=== PATIENT | female | born 1975 | race Caucasian/White ===

== ENCOUNTER 2018-03-30 10:31 | Emergency (ER) | payer OTHER ==
[~2018-03-30] VITALS: Ht 157.5 cm; Wt 68.0 kg
[~2018-03-30 10:31] MED LIST: ACET325; ALBU90OI61 INH; CRUTCH4 USE; Crutch1 EACH MISC; DOC250 PO; DULOXETINE HCL60 MG PO; FOLI1 PO; Gabapentin600 MG PO; HYDACE10B PO; HYDACE5 PO; HYDPAM25 PO; Hydrocodone-Ap1 EA20 PO; LAMOTRIGINE200 MG PO; LORA2 PO; MULVIT; Naprosyn500 MG PO; Naproxen500 MG PO; Norco 5-325 Ta1 EACH PO; OXYACE5T PO; PARO10 PO; PRAHYD1AE TOP; UNKNOWN ANTIBIOTIC
[2018-03-30] MEDS ORDERED: Doxycycline Hy100 MG PO (11:02)
== END 2018-03-30 12:00 | disposition home or self-care (01) ==
LOC: ER 10:31
DX: S61.452A Open bite of left hand, initial encounter (principal); W54.0XXA Bitten by dog, initial encounter; Z88.2 Allergy status to sulfonamides; Z88.8 Allergy status to other drugs, medicaments and biological substances; Z88.0 Allergy status to penicillin; Z91.048 Other nonmedicinal substance allergy status; Z91.040 Latex allergy status; Z88.5 Allergy status to narcotic agent; Z79.899 Other long term (current) drug therapy; Z79.891 Long term (current) use of opiate analgesic; Z79.2 Long term (current) use of antibiotics; F32.9 Major depressive disorder, single episode, unspecified; F31.9 Bipolar disorder, unspecified; F20.9 Schizophrenia, unspecified; F17.200 Nicotine dependence, unspecified, uncomplicated
CPT/HCPCS: 90376; 90471; 96372; 99283

== ENCOUNTER 2019-04-05 08:55 | Day surgery (SDC) | payer OTHER ==
[~2019-04-05] VITALS: Ht 157.5 cm; Wt 63.6 kg
[~2019-04-05 08:55] MED LIST changes: +Doxycycline Hy100 MG PO
[2019-04-05] MEDS ORDERED: FOLI400 (09:56)
== END 2019-04-05 11:05 | disposition home or self-care (01) ==
LOC: ORSCSDS 08:55
PROVIDERS: Internal Medicine Gastroenterology
PROC: 0DBM8ZX Excision of Descending Colon, Via Natural or Artificial Opening Endoscopic, Diagnostic (ICD-10-PCS; principal; 2019-04-05 10:15)
DX: K62.5 Hemorrhage of anus and rectum (principal); K63.5 Polyp of colon; K57.30 Diverticulosis of large intestine without perforation or abscess without bleeding; K64.4 Residual hemorrhoidal skin tags; K64.8 Other hemorrhoids; Z86.010 Personal history of colon polyps; K59.09 Other constipation; R10.9 Unspecified abdominal pain; J45.909 Unspecified asthma, uncomplicated; F17.210 Nicotine dependence, cigarettes, uncomplicated; Z79.899 Other long term (current) drug therapy
CPT/HCPCS: 88305; J2704; J7120

== ENCOUNTER 2023-12-24 11:36 | Emergency (ER) | payer OTHER ==
[~2023-12-24] VITALS: Ht 167.6 cm; Wt 68.0 kg
[~2023-12-24 11:36] MED LIST changes: +FOLI400
[2023-12-24 12:04] LABS: Hematocrit 41.9 % (33.0-51.0); Hemoglobin 13.8 g/dL (11.5-16.0); Mean Corpuscular HGB 30.3 pg (26.0-34.0); Mean Corpuscular HGB Conc 32.9 g/dL (31.5-36.5); Mean Corpuscular Volume 92 fL (80-100); Mean Platelet Volume 10.4 fL (9.1-12.4); Platelet Count 257 K/mm3 (150-400); RDW Coefficient Variation 13.7 % (11.7-14.2); Red Blood Cell Count 4.55 M/mm3 (3.80-5.20); White Blood Cell Count 7.53 K/mm3 (4.00-11.30)
[2023-12-24 12:23] LABS: Albumin, Blood 3.8 g/dL (3.4-5.0); Bilirubin, Total 0.4 mg/dL (0.1-1.0); Bun/Creatinine Ratio 12.1 (12.0-20.0); Calcium, Blood 9.3 mg/dL (8.5-10.1); Creatinine, Blood 0.75 mg/dL (0.40-1.00); Globulin, Blood 3.7 g/dL (2.2-4.0); Potassium, Blood 3.7 mmol/L (3.5-5.5); Total Protein, Blood 7.5 g/dL (6.4-8.2)
[2023-12-24 12:24] LABS: BASOPHILS PERCENT MAN 0 % (0-2); EOSINOPHILS PERCENT MAN 0 % (0-6); LYMPHOCYTES PERCENT MAN 8 % (21-46); MONOCYTES ABSOLUTE MAN 0.22 K/mm3 (0.16-1.47); MONOCYTES PERCENT MAN 3 % (4-13); MYELOCYTE ABSOLUTE MAN 0.07 K/mm3 (0.00-0.00); MYELOCYTE PERCENT MAN 1 % (0-0); NEUTROPHILS ABSOLUTE MAN 6.62 K/mm3 (1.96-9.15); SEG NEUTROPHILS PERCENT MAN 88 % (41-73); TOTAL CELLS COUNTED 100
[2023-12-24 12:42] LABS: Influenza B, PCR NEGATIVE (NEGATIVE); Resp Syncytial Virus, PCR NEGATIVE (NEGATIVE); SARS-Cov-2 (COVID-19) PCR, MMC NEGATIVE (NEGATIVE)
[2023-12-24 12:43] LABS: Influenza A, PCR POSITIVE (NEGATIVE)
[2023-12-24 15:00] VITALS: BP 138/83
== END 2023-12-24 15:32 | disposition home or self-care (01) ==
LOC: ER 11:36
PROVIDERS: Physician Assistant
DX: F41.9 Anxiety disorder, unspecified (principal); J10.1 Influenza due to other identified influenza virus with other respiratory manifestations; Z88.2 Allergy status to sulfonamides; Z88.1 Allergy status to other antibiotic agents; Z88.0 Allergy status to penicillin; Z91.048 Other nonmedicinal substance allergy status; Z91.040 Latex allergy status; Z88.5 Allergy status to narcotic agent; Z79.899 Other long term (current) drug therapy; F17.200 Nicotine dependence, unspecified, uncomplicated
CPT/HCPCS: 0241U; 71046; 80053; 84484; 85025; 93005; 93010; 99284-25

== ENCOUNTER 2024-05-25 12:20 | Emergency (ER) | payer OTHER ==
[~2024-05-25] VITALS: Ht 157.5 cm; Wt 69.8 kg
[2024-05-25] MEDS ORDERED: Dexamethasone Sod Phos 10 MG/ML 1ML VIAL IV ONE (14:20)
[2024-05-25] MEDS ORDERED: Ketorolac Tromethamine 30mg Vial IV ONE (14:20)
[2024-05-25 14:59] LABS: BASOPHILS ABSOLUTE AUTO 0.04 K/mm3 (0.00-0.23); BASOPHILS PERCENT AUTO 1 % (0-2); EOSINOPHILS ABSOLUTE AUTO 0.17 K/mm3 (0.00-0.68); EOSINOPHILS PERCENT AUTO 2 % (0-6); Hematocrit 39.1 % (33.0-51.0); Hemoglobin 12.7 g/dL (11.5-16.0); IMMATURE GRAN ABSOLUTE AUTO 0.03 K/mm3 (0.00-0.10); IMMATURE GRAN PERCENT AUTO 0 % (0-1); LYMPHOCYTES ABSOLUTE AUTO 1.95 K/mm3 (0.84-5.20); LYMPHOCYTES PERCENT AUTO 25 % (21-46); MONOCYTES ABSOLUTE AUTO 0.56 K/mm3 (0.16-1.47); MONOCYTES PERCENT AUTO 7 % (4-13); Mean Corpuscular HGB 30.1 pg (26.0-34.0); Mean Corpuscular HGB Conc 32.5 g/dL (31.5-36.5); Mean Corpuscular Volume 93 fL (80-100); Mean Platelet Volume 9.3 fL (9.1-12.4); NEUTROPHILS ABSOLUTE AUTO 5.11 K/mm3 (1.96-9.15); NEUTROPHILS PERCENT AUTO 65 % (41-73); NRBC ABSOLUTE 0.02 K/mm3 (0.00-0.02); NRBC Auto 0.3 /100 WBC (0.0-0.2); Platelet Count 255 K/mm3 (150-400); RDW Standard Deviation 47.7 fL (35.1-46.3); Red Blood Cell Count 4.22 M/mm3 (3.80-5.20); White Blood Cell Count 7.86 K/mm3 (4.00-11.30)
[2024-05-25 15:15] LABS: Albumin, Blood 3.9 g/dL (3.4-5.0); Albumin/Globulin Ratio 1.2 (0.8-1.8); Bilirubin, Total 0.6 mg/dL (0.1-1.0); Bun/Creatinine Ratio 25.6 (12.0-20.0); Calcium, Blood 9.2 mg/dL (8.5-10.1); Creatinine, Blood 0.74 mg/dL (0.40-1.00); Globulin, Blood 3.2 g/dL (2.2-4.0); Potassium, Blood 4.4 mmol/L (3.5-5.5); Total Protein, Blood 7.1 g/dL (6.4-8.2)
[2024-05-25 15:30] VITALS: BP 103/69
[2024-05-25] MEDS ORDERED: METPRE4DP PO (15:34)
[2024-05-25] MEDS ORDERED: CEPH500 PO (15:34)
[2024-05-25] MEDS ORDERED: IBUP600 PO (15:34)
== END 2024-05-25 15:54 | disposition home or self-care (01) ==
LOC: ER 12:20
PROVIDERS: Emergency Medicine
DX: L25.9 Unspecified contact dermatitis, unspecified cause (principal); F17.200 Nicotine dependence, unspecified, uncomplicated; Z79.899 Other long term (current) drug therapy; Z88.0 Allergy status to penicillin; Z88.6 Allergy status to analgesic agent; Z88.1 Allergy status to other antibiotic agents; Z91.040 Latex allergy status; Z88.5 Allergy status to narcotic agent
CPT/HCPCS: 80053; 85025; 96374; 96375; 99283-25; J1100; J1885

== ENCOUNTER → 2024-06-06 | Outpatient (CLI) | payer OTHER ==
[~2024-06-06] MED LIST changes: +CEPH500 PO; +IBUP600 PO; +METPRE4DP PO
== END ==
LOC: LAB SHORT 13:58 → LAB 13:58
DX: R21 Rash and other nonspecific skin eruption (principal)
CPT/HCPCS: 87210

== ENCOUNTER → 2024-06-16 | Outpatient (CLI) | payer OTHER | LOC: LAB SHORT 16:20 → LAB 16:20 | DX: S81.802A Unspecified open wound, left lower leg, initial encounter (principal) | CPT/HCPCS: 87070; 87205 ==

== ENCOUNTER 2024-07-17 07:16 | Day surgery (SDC) | payer OTHER ==
[~2024-07-17] VITALS: Ht 157.5 cm; Wt 65.7 kg
[~2024-07-17 07:16] MED LIST changes: +Lactated Ringer's 1,000 ML IV ONE; +Lidocaine 1%-Epineph 1:100000 20 ML MDV ONE
[2024-07-17] MEDS ORDERED: TIZA4 (07:42)
[2024-07-17] MEDS ORDERED: LISI20 PO (07:44)
[2024-07-17] MEDS ORDERED: CATAPRES0.2 M1 PO (07:44)
[2024-07-17] MEDS ORDERED: PRAM.125 PO (07:44)
[2024-07-17] MEDS ORDERED: COMBIVENT RESPIM4 G1 INH (07:45)
[2024-07-17] MEDS ORDERED: Serevent Disku50 MCG IH (07:45)
[2024-07-17] MEDS ORDERED: Lactated Ringer's 1,000 ML IV ONE (07:49)
--- NOTE | 2024-07-17 07:50 | NUR ---
07/17/24 0750 Olivia Byrd TIME OUT COMPLETED AT BEDSIDE WITH DR GAMBINO PRIOR TO DR GAMBINO INJECTING TOTAL OF 15ML MIXTURE OF 1% LIDOCAINE WITH EPI [id number] AND 8.4% SODIUM BICARBONATE.
[2024-07-17] MEDS ORDERED: propofoL 20 ML IV ONE (08:20)
[2024-07-17] MEDS ORDERED: Midazolam HCl 1MG / ML 2ML Vial ONE (08:20)
[2024-07-17] MEDS ORDERED: FentaNYL Citrate 50 MCG/ML 2 ML Injection ONE (08:20)
[2024-07-17 09:02] VITALS: BP 94/66
--- NOTE | 2024-07-17 09:21 | NUR ---
07/17/24 0921 La Rocha PT STEADY ON FEET. NO COMPLAITS OF PAIN. NO QUESTIONS OR CONCERS
== END 2024-07-17 09:19 | disposition home or self-care (01) ==
LOC: ORSCSDS 07:16
PROVIDERS: Orthopaedic Surgery
PROC: 0LN80ZZ Release Left Hand Tendon, Open Approach (ICD-10-PCS; principal; 2024-07-17 08:30)
PROC: 01N54ZZ Release Median Nerve, Percutaneous Endoscopic Approach (ICD-10-PCS; 2024-07-17 08:30)
DX: G56.03 Carpal tunnel syndrome, bilateral upper limbs (principal); M65.342 Trigger finger, left ring finger; M65.332 Trigger finger, left middle finger; I10 Essential (primary) hypertension; K21.9 Gastro-esophageal reflux disease without esophagitis; R56.9 Unspecified convulsions; Z87.891 Personal history of nicotine dependence; Z79.899 Other long term (current) drug therapy
CPT/HCPCS: J2250; J2704; J3010; J7120

== ENCOUNTER 2025-01-07 12:12 | Emergency (ER) | payer OTHER ==
[~2025-01-07] VITALS: Ht 157.5 cm; Wt 59.0 kg
[~2025-01-07 12:12] MED LIST changes: +CATAPRES0.2 M1 PO; +COMBIVENT RESPIM4 G1 INH; +LISI20 PO; -Lactated Ringer's 1,000 ML IV ONE; -Lidocaine 1%-Epineph 1:100000 20 ML MDV ONE; +PRAM.125 PO; +Serevent Disku50 MCG IH; +TIZA4
[2025-01-07 12:40] VITALS: BP 97/68
[2025-01-07] MEDS ORDERED: Diphth,Pertuss(Acell),Tet Vac 0.5 ML VIAL IM ONE (12:45)
== END 2025-01-07 14:51 | disposition home or self-care (01) ==
LOC: ER 12:12
DX: S61.216A Laceration without foreign body of right little finger without damage to nail, initial encounter (principal); W25.XXXA Contact with sharp glass, initial encounter; Z23 Encounter for immunization; Z79.899 Other long term (current) drug therapy; Z79.891 Long term (current) use of opiate analgesic; F17.200 Nicotine dependence, unspecified, uncomplicated; Z88.2 Allergy status to sulfonamides; Z88.0 Allergy status to penicillin; Z88.6 Allergy status to analgesic agent; Z91.09 Other allergy status, other than to drugs and biological substances; Z88.5 Allergy status to narcotic agent; Z91.040 Latex allergy status
CPT/HCPCS: 12001; 90471; 90715; 99282-25

== ENCOUNTER 2025-07-09 17:06 | Observation (INO) | payer OTHER ==
[~2025-07-09] VITALS: Ht 162.6 cm; Wt 65.8 kg
[~2025-07-09 17:06] MED LIST changes: -TIZA4; +TIZA4 PO
[2025-07-09 17:59] LABS: Source, Urine Clean Catch
[2025-07-09 18:43] LABS: BASOPHILS ABSOLUTE AUTO 0.03 K/mm3 (0.00-0.23); BASOPHILS PERCENT AUTO 0 % (0-2); EOSINOPHILS ABSOLUTE AUTO 0.12 K/mm3 (0.00-0.68); EOSINOPHILS PERCENT AUTO 2 % (0-6); Hematocrit 42.1 % (33.0-51.0); Hemoglobin 13.8 g/dL (11.5-16.0); IMMATURE GRAN ABSOLUTE AUTO 0.02 K/mm3 (0.00-0.10); IMMATURE GRAN PERCENT AUTO 0 % (0-1); LYMPHOCYTES ABSOLUTE AUTO 2.35 K/mm3 (0.84-5.20); LYMPHOCYTES PERCENT AUTO 29 % (21-46); MONOCYTES ABSOLUTE AUTO 0.71 K/mm3 (0.16-1.47); MONOCYTES PERCENT AUTO 9 % (4-13); Mean Corpuscular HGB Conc 32.8 g/dL (31.5-36.5); Mean Corpuscular Volume 92 fL (80-100); NEUTROPHILS ABSOLUTE AUTO 4.89 K/mm3 (1.96-9.15); NEUTROPHILS PERCENT AUTO 60 % (41-73); NRBC ABSOLUTE 0.00 K/mm3 (0.00-0.02); NRBC Auto 0.0 /100 WBC (0.0-0.2); Platelet Count 326 K/mm3 (150-400); RDW Coefficient Variation 13.2 % (11.7-14.2); RDW Standard Deviation 45.3 fL (35.1-46.3)
[2025-07-09 19:00] LABS: Color, Urine Yellow (P-Yellow); Glucose Qualitative, Urine Neg (Neg); Ketones, Urine Neg (Neg); Leukocyte Esterase, Urine 1+ (Neg); Protein, Urine 2+ (Neg); Specific Gravity, Urine 1.025 (1.003-1.022); Urobilinogen, Urine 1+ (Normal)
[2025-07-09 19:45] LABS: U Amphetamine Screen DETECTED; U Barbituate Screen Not Detected; U Benzodiazapine Screen Not Detected; U Buprenorphine Screen Not Detected; U Cannabinoids Screen DETECTED; U Cocaine Screen Not Detected; U Methadone Screen Not Detected; U Methamphetamine Screen DETECTED; U Opiates Screen Not Detected; U Oxycodone Screen Not Detected; U Phencyclidine Screen Not Detected
[2025-07-09 19:50] LABS: Bilirubin, Urine 1+ (Neg)
[2025-07-09 19:54] LABS: Ethanol (Alcohol), Blood, Med <3 mg/dL; Salicylate 3.8 mg/dL (2.8-20.0)
[2025-07-09 19:56] LABS: Acetaminophen, Random <2.0 ug/mL (10.0-30.0); Alanine Aminotransfer (ALT/SGP 22 U/L (12-78); Albumin, Blood 3.8 g/dL (3.4-5.0); Albumin/Globulin Ratio 1.2 (0.8-1.8); Anion Gap 6 mmol/L (3-11); Aspartate Aminotrans (AST/SGOT 19 U/L (12-37); Bilirubin, Total 0.3 mg/dL (0.1-1.0); Blood Urea Nitrogen 31 mg/dL (8-24); CO2, Blood 25 mmol/L (21-32); Calcium, Blood 9.1 mg/dL (8.5-10.1); Chloride, Blood 110 mmol/L (98-108); Creatinine, Blood 0.79 mg/dL (0.40-1.00); Globulin, Blood 3.2 g/dL (2.2-4.0); Glucose, Blood 102 mg/dL (70-99); Potassium, Blood 3.7 mmol/L (3.5-5.5); Sodium, Blood 137 mmol/L (136-145); Total Protein, Blood 7.0 g/dL (6.4-8.2)
[2025-07-09] MEDS ORDERED: Naproxen 250 MG TAB PO ONE (21:10)
[2025-07-09] MEDS ORDERED: Ondansetron 4 MG SoluTab MM ONE (22:10)
[2025-07-09 23:43] LABS: BASOPHILS ABSOLUTE AUTO 0.04 K/mm3 (0.00-0.23); BASOPHILS PERCENT AUTO 0 % (0-2); EOSINOPHILS ABSOLUTE AUTO 0.19 K/mm3 (0.00-0.68); EOSINOPHILS PERCENT AUTO 2 % (0-6); Hematocrit 42.9 % (33.0-51.0); Hemoglobin 13.3 g/dL (11.5-16.0); IMMATURE GRAN ABSOLUTE AUTO 0.02 K/mm3 (0.00-0.10); IMMATURE GRAN PERCENT AUTO 0 % (0-1); LYMPHOCYTES ABSOLUTE AUTO 5.06 K/mm3 (0.84-5.20); LYMPHOCYTES PERCENT AUTO 43 % (21-46); MONOCYTES ABSOLUTE AUTO 1.24 K/mm3 (0.16-1.47); MONOCYTES PERCENT AUTO 11 % (4-13); Mean Corpuscular HGB Conc 31.0 g/dL (31.5-36.5); Mean Corpuscular Volume 96 fL (80-100); NEUTROPHILS ABSOLUTE AUTO 5.16 K/mm3 (1.96-9.15); NEUTROPHILS PERCENT AUTO 44 % (41-73); NRBC ABSOLUTE 0.00 K/mm3 (0.00-0.02); NRBC Auto 0.0 /100 WBC (0.0-0.2); Platelet Count 300 K/mm3 (150-400); RDW Coefficient Variation 13.2 % (11.7-14.2); RDW Standard Deviation 47.4 fL (35.1-46.3)
[2025-07-10 00:01] LABS: Magnesium, Blood 2.1 mg/dL (1.6-2.4); Prothrombin Time Results 11.1 Sec (9.7-11.5); Salicylate 4.0 mg/dL (2.8-20.0)
[2025-07-10 00:04] LABS: Acetaminophen, Random <2.0 ug/mL (10.0-30.0); Alanine Aminotransfer (ALT/SGP 18 U/L (12-78); Albumin, Blood 3.5 g/dL (3.4-5.0); Albumin/Globulin Ratio 1.1 (0.8-1.8); Anion Gap 18 mmol/L (3-11); Aspartate Aminotrans (AST/SGOT 19 U/L (12-37); Bilirubin, Total 0.2 mg/dL (0.1-1.0); Blood Urea Nitrogen 31 mg/dL (8-24); CO2, Blood 19 mmol/L (21-32); Calcium, Blood 8.5 mg/dL (8.5-10.1); Chloride, Blood 107 mmol/L (98-108); Creatinine, Blood 0.75 mg/dL (0.40-1.00); Globulin, Blood 3.3 g/dL (2.2-4.0); Glucose, Blood 122 mg/dL (70-99); Potassium, Blood 3.3 mmol/L (3.5-5.5); Sodium, Blood 141 mmol/L (136-145); Total Protein, Blood 6.8 g/dL (6.4-8.2)
[2025-07-10 00:34] LABS: pH Blood Venous 7.32 (7.34-7.37)
[2025-07-10 02:48] LABS: Anion Gap 8.0 mmol/L (3-11); Blood Urea Nitrogen 27.0 mg/dL (8-24); CO2, Blood 25.0 mmol/L (21-32); Calcium, Blood 8.5 mg/dL (8.5-10.1); Chloride, Blood 109.0 mmol/L (98-108); Creatinine, Blood 0.65 mg/dL (0.40-1.00); Glucose, Blood 106.0 mg/dL (70-99); Potassium, Blood 3.8 mmol/L (3.5-5.5); Salicylate 3.3 mg/dL (2.8-20.0); Sodium, Blood 138.0 mmol/L (136-145)
[2025-07-10] MEDS ORDERED: Ondansetron HCl 2 MG / ML 2ML Vial IV ONE (03:00)
[2025-07-10] MEDS ORDERED: Ondansetron 4 MG SoluTab MM PRN (03:10)
[2025-07-10 05:01] LABS: Anion Gap 7.0 mmol/L (3-11); Blood Urea Nitrogen 27.0 mg/dL (8-24); CO2, Blood 26.0 mmol/L (21-32); Calcium, Blood 8.4 mg/dL (8.5-10.1); Chloride, Blood 111.0 mmol/L (98-108); Creatinine, Blood 0.66 mg/dL (0.40-1.00); Glucose, Blood 119.0 mg/dL (70-99); Potassium, Blood 3.8 mmol/L (3.5-5.5); Sodium, Blood 140.0 mmol/L (136-145)
[2025-07-10] MEDS ORDERED: LORazepam 2 MG/ML 1ML Injection IV ONE (06:35)
[2025-07-10] MEDS ORDERED: Diazepam 5 MG / ML 2ML SYR IV PRN (06:40)
[2025-07-10] MEDS ORDERED: HydrALAZINE HCl 20 MG / ML 1ML Vial IV PRN (06:55)
[2025-07-10 08:12] VITALS: BP 103/57
[2025-07-10] MEDS ORDERED: Enoxaparin 40 MG/0.4 ML SYR SC SCH (09:00)
[2025-07-10 11:40] VITALS: BP 116/62
[2025-07-10] MEDS ORDERED: GABA300 PO (11:50)
[2025-07-10] MEDS ORDERED: PARO30 PO (11:52)
[2025-07-10] MEDS ORDERED: ZOCOR20 MG PO (11:56)
[2025-07-10 16:38] VITALS: BP 116/67
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
--- NOTE | 2025-07-10 20:02 | NUR ---
UPDATE: THIS RN WAS MADE AWARE THAT PT WAS NOW AWAKE AND STATING SHE WOULD LIKE TO LEAVE. THIS RN NOTIFIED DR DAVID OF PT'S DESIRE TO LEAVE, PROVIDER SAID HE WOULD SEE HER IN THE AM AND TO NOTIFY THE NIGHT MD. DR. BRADFORD NOTIFIED OF PT'S DESIRE TO LEAVE. PROVIDER TO BEDSIDE TO TALK WITH PT. AFTER DISCUSSION PT IS AGREEABLE TO STAYING THE NIGHT.
[2025-07-10 20:40] VITALS: BP 108/65
[2025-07-10 23:07] VITALS: BP 99/71
[2025-07-11 03:16] VITALS: BP 141/81
[2025-07-11] MEDS ORDERED: Albuterol 2.5 MG/3 ML VIAL INH PRN (04:05)
--- NOTE | 2025-07-11 05:26 | NUR ---
SHIFT SUMMARY PT ALERT AND ORIENTED X 4. STILL LETHARGIC AT TIMES BUT ABLE TO ASSIST TO BATHROOM X 1. PT NSR IN 80S ON MONITOR. DENIES CP/PRESSURE. PT MAINTAINS O2 SATS ABOVE 90% ON RA. PT DID NOT HAVE ANY SEIZURES THIS SHIFT. PRECAUTIONS IN PLACE. 1:[address] FOR SI[address] PSYCH TO REEVAL PATIENT TODAY. PT RESTED WELL THE MAJORITY OF SHIFT.
[2025-07-11 08:17] VITALS: BP 116/101
[2025-07-11 12:22] VITALS: BP 133/86
[2025-07-11] MEDS ORDERED: KEPPRA250 M1 PO (12:36)
--- NOTE | 2025-07-11 14:30 | NUR ---
Discharge note. Pt has been awake and active since shift change this morning. Pt has been very vocal about wanting to discharge. Psych rounded and decided that she will be admitted to [facility]. Pt has also vocalized her frustration about being admitted to [facility] rather than going home. Pt is very concerned about her housing situation while she is in the hospital. Report was given to [facility]. All belongings were taken with Pt.
[2025-07-16] MEDS ORDERED: MIRT30 PO (10:38)
== END 2025-07-11 14:18 | disposition home or self-care (01) ==
LOC: ER 17:06 → PCU 17:07 → EOR 17:07 → EDBEDREQ 22:11 → PCU 07-10 07:53
PROVIDERS: Student in an Organized Health Care Education/Training Program; ADMIT Student in an Organized Health Care Education/Training Program
DX: T42.6X2A Poisoning by other antiepileptic and sedative-hypnotic drugs, intentional self-harm, initial encounter (principal); R41.0 Disorientation, unspecified; H53.2 Diplopia; E87.20 Acidosis, unspecified; E87.6 Hypokalemia; R56.9 Unspecified convulsions; S00.03XA Contusion of scalp, initial encounter; W18.30XA Fall on same level, unspecified, initial encounter; F25.0 Schizoaffective disorder, bipolar type; J45.909 Unspecified asthma, uncomplicated; F17.200 Nicotine dependence, unspecified, uncomplicated; Z66 Do not resuscitate; Z88.0 Allergy status to penicillin; Z88.1 Allergy status to other antibiotic agents; Z88.8 Allergy status to other drugs, medicaments and biological substances; Z91.040 Latex allergy status; Z91.048 Other nonmedicinal substance allergy status; Z79.899 Other long term (current) drug therapy
CPT/HCPCS: 70450; 72125; 80048; 80053; 80320; 81001; 81025; 82550; 82803; 83605; 83735; 84145; 84146; 85025; 85610; 85730; 87086; 90471; 90715; 93005; 93010; 96365; 96375; 99285-25; A9270; G0378; G0480; J1953; J2405; J7120

== ENCOUNTER 2025-09-24 05:17 | Emergency (ER) | payer OTHER ==
[~2025-09-24] VITALS: Ht 160 cm; Wt 59.0 kg
[~2025-09-24 05:17] MED LIST changes: +GABA300 PO; +KEPPRA250 M1 PO; +MIRT30 PO; +PARO30 PO; +ZOCOR20 MG PO
[2025-09-24] MEDS ORDERED: QUETIAPINE FUMA25 MG PO (05:29)
[2025-09-24] MEDS ORDERED: NAPROXEN500 MG PO (05:29)
[2025-09-24] MEDS ORDERED: PARO30 PO (05:29)
[2025-09-24] MEDS ORDERED: PRAMIPEXOLE D0.25 M1 PO (05:29)
[2025-09-24] MEDS ORDERED: DULOXETINE HCL60 M1 PO (05:29)
[2025-09-24 05:48] LABS: BASOPHILS ABSOLUTE AUTO 0.04 K/mm3 (0.00-0.23); BASOPHILS PERCENT AUTO 1 % (0-2); EOSINOPHILS ABSOLUTE AUTO 0.11 K/mm3 (0.00-0.68); EOSINOPHILS PERCENT AUTO 1 % (0-6); Hematocrit 40.4 % (33.0-51.0); Hemoglobin 13.1 g/dL (11.5-16.0); IMMATURE GRAN ABSOLUTE AUTO 0.03 K/mm3 (0.00-0.10); IMMATURE GRAN PERCENT AUTO 0 % (0-1); LYMPHOCYTES ABSOLUTE AUTO 1.62 K/mm3 (0.84-5.20); LYMPHOCYTES PERCENT AUTO 20 % (21-46); MONOCYTES ABSOLUTE AUTO 0.57 K/mm3 (0.16-1.47); MONOCYTES PERCENT AUTO 7 % (4-13); Mean Corpuscular HGB Conc 32.4 g/dL (31.5-36.5); Mean Corpuscular Volume 94 fL (80-100); NEUTROPHILS ABSOLUTE AUTO 5.68 K/mm3 (1.96-9.15); NEUTROPHILS PERCENT AUTO 71 % (41-73); NRBC ABSOLUTE 0.00 K/mm3 (0.00-0.02); NRBC Auto 0.0 /100 WBC (0.0-0.2); Platelet Count 302 K/mm3 (150-400); RDW Coefficient Variation 14.2 % (11.7-14.2); RDW Standard Deviation 49.4 fL (35.1-46.3)
[2025-09-24 06:14] LABS: Alanine Aminotransfer (ALT/SGP 19.0 U/L (12-78); Albumin, Blood 3.6 g/dL (3.4-5.0); Albumin/Globulin Ratio 1.2 (0.8-1.8); Anion Gap 6.0 mmol/L (3-11); Aspartate Aminotrans (AST/SGOT 28.0 U/L (12-37); Bilirubin, Total 0.4 mg/dL (0.1-1.0); Blood Urea Nitrogen 15.0 mg/dL (8-24); CO2, Blood 27.0 mmol/L (21-32); Calcium, Blood 9.1 mg/dL (8.5-10.1); Chloride, Blood 112.0 mmol/L (98-108); Creatinine, Blood 0.51 mg/dL (0.40-1.00); Globulin, Blood 3.1 g/dL (2.2-4.0); Glucose, Blood 114.0 mg/dL (70-99); Magnesium, Blood 2.3 mg/dL (1.6-2.4); Potassium, Blood 5.3 mmol/L (3.5-5.5); Sodium, Blood 140.0 mmol/L (136-145); Total Protein, Blood 6.7 g/dL (6.4-8.2)
[2025-09-24] MEDS ORDERED: RX Prepack 2 Sprays Naloxone HCL 4 MG/SPRAY UD ONE ×2 (06:20→09:25)
[2025-09-24 09:30] VITALS: BP 136/108
== END 2025-09-24 09:34 | disposition home or self-care (01) ==
LOC: ER 05:17
PROVIDERS: Student in an Organized Health Care Education/Training Program
DX: T50.901A Poisoning by unspecified drugs, medicaments and biological substances, accidental (unintentional), initial encounter (principal); F25.0 Schizoaffective disorder, bipolar type; F17.200 Nicotine dependence, unspecified, uncomplicated; Z88.2 Allergy status to sulfonamides; Z88.1 Allergy status to other antibiotic agents; Z88.0 Allergy status to penicillin; Z88.8 Allergy status to other drugs, medicaments and biological substances; Z88.5 Allergy status to narcotic agent; Z91.040 Latex allergy status; Z91.048 Other nonmedicinal substance allergy status; Z79.899 Other long term (current) drug therapy
CPT/HCPCS: 80053; 83735; 85025; 99284; A9270